=== PATIENT | male | born 1955 | race Caucasian/White ===

== ENCOUNTER → 2022-03-14 | Outpatient (CLI) | payer OTHER ==
[~2022-03-14] MED LIST: GADOTERATE MEGLUMINE 10 MMOL/20 ML VIAL IVP ONE
== END | disposition home or self-care (01) ==
LOC: RADPV 14:25
PROVIDERS: ATTEND Internal Medicine
DX: I65.22 Occlusion and stenosis of left carotid artery (principal); J34.89 Other specified disorders of nose and nasal sinuses; I63.9 Cerebral infarction, unspecified
CPT/HCPCS: 70553; 70544; A9575